=== PATIENT | female | born 1965 | race Caucasian/White ===

== ENCOUNTER 2023-06-27 14:38 | Observation (INO) | payer OTHER, SELFPAY ==
[2023-06-27] VITALS (37 sets, daily range): BP systolic 95–142; BP diastolic 53–96; PULSE 58–110; RESP 13–28; TEMP 36.1–36.3; O2SAT 92–97; BMI 48.1
--- NOTE | 2023-06-27 14:58 | ECG_ITS ---
The [facility] Test Date: 2023-06-27 Pat Name: PHYLLIS MIN Department: Room: - Gender: Female [employer] Member: : 1965 Requested By: [id number] Order Number: [id number] Reading MD: JESSICA LEON Measurements Intervals [place] Rate: 103 P: -[id number] OK: -[id number] QRS: 32 QRSD: 100 T: 10 QT: 320 QTc: 379 Interpretive Statements [id number] Atrial fibrillation with rapid ventricular response with aberrant conduction, or ventricular premature complexes [id number] Nonspecific Twave abnormality, probably digitalis effect 9140 abnormal rhythm ECG No previous ECG available for comparison Electronically Signed On 06-28-2023 7:05:03 EST by JESSICA LEON
--- NOTE | 2023-06-27 15:01 | ED.EYEPROB1 ---
HPI - Eye Problem General Chief complaint: Eye Problems Stated complaint: SUDDEN LOSS OF VISION Time Seen by Provider: 06/27/23 14:40 Source: patient Mode of arrival: walk-in Limitations: no limitations History of Present Illness HPI Narrative: Patient is a 57-year-old female who presents to the emergency department for the evaluation of visual change in the left eye for the last 3 days. She states she has developed cloudy vision in the left eye with davis visual loss in the 5 o'clock position and middle of her visual field. She has no visual changes to the right eye. She states she did have a headache preceding the symptoms but has no persistent headaches, fevers, vomiting. No peripheral paresthesias. She has had no previous issues or surgeries on the left eye. Related Data Allergies Allergy/AdvReac Type Severity Reaction Status Date / Time naproxen [From Aleve] Allergy Unknown Verified 06/27/23 14:47 Review of Systems ROS Constitutional Denies: fever or chills Eyes Reports: change in vision, blurry vision and blind spots Ears, nose, mouth, and throat Denies: throat pain Cardiovascular Denies: chest pain Respiratory Denies: shortness of breath or cough Gastrointestinal Denies: nausea or vomiting Musculoskeletal Denies: back pain Integumentary/Breast Denies: rash Neurological Denies: headache Exam Narrative Exam Narrative: Gen.: Awake, alert, in no distress Head: Normocephalic, atraumatic ENT: Moist mucous membranes; left eye with dilated pupil, no evidence of retinal detachment in the posterior aspect of the eye, dilated blood vessel noted with normal extraocular muscle motion Respiratory: No respiratory distress Extremities: Moves extremities equally Psych: Normal mood and affect Neuro: No focal neuro deficit Skin: Warm, dry, intact Constitutional Vital Signs, click to edit/add: Last Vital Signs Temp 97.4 F L 06/27/23 14:47 Pulse 69 06/27/23 14:47 Resp 16 06/27/23 14:47 BP 142/87 H 06/27/23 14:47 Pulse Ox 97 06/27/23 14:47 O2 Del Method Room Air 06/27/23 14:47 Course Vital Signs Vital signs: Vital Signs Temperature 97.4 F L 06/27/23 14:47 Pulse Rate 69 06/27/23 14:47 Respiratory Rate 16 06/27/23 14:47 Blood Pressure 142/87 H 06/27/23 14:47 Pulse Oximetry 97 06/27/23 14:47 Oxygen Delivery Method Room Air 06/27/23 14:47 Temperature 97.4 F L 06/27/23 14:47 Pulse Rate 69 06/27/23 14:47 Respiratory Rate 16 06/27/23 14:47 Blood Pressure 142/87 H 06/27/23 14:47 Pulse Oximetry 97 06/27/23 14:47 Oxygen Delivery Method Room Air 06/27/23 14:47 MDM - Eye Problem MDM Narrative Medical decision making narrative: On arrival to the emergency department, the patient was sent for stroke protocol CT of the brain without contrast as well as a CT angio head and neck. These results were reviewed by the radiologist showing no evidence of acute process. Lab studies and EKG were obtained, patient was noted to be in rapid new onset A-fib. She is not anticoagulated. Heart rate remained controlled as the patient rested in the ER, she did not require Cardizem for heart rate control. Her labs show leukocytosis, critically elevated platelet count, elevated TSH and mild hyperglycemia. CRP and sed rates are significantly elevated, concern for temporal arteritis in the ER. She was given 250 mg IV Solu-Medrol. I discussed the patient's presentation and clinical findings with Dr. Mcclain ([id number]) for [facility] stroke intervention, no additional stroke intervention at this time recommended. Tertiary care transfer was discussed and Dr. Mcclain is in agreement the patient should be admitted to neurology to rule out temporal arteritis. Discussed the patient with general neurology, Dr. Grossman ([id number]) who is also in agreement with tertiary care transfer and the patient will be excepted to general neurology service at [facility]. Due to challenges with bed availability, it was recommended that the patient be admitted to this facility overnight for teleneurology management, as well as Solu-Medrol 500 mg twice daily until the patient can be transferred to [facility]. Patient was given Rocephin for coverage of the leukocytosis and acute inflammatory response. Patient admitted to this facility, ICU until there is a bed available at [facility] to accept the patient for transfer. Stable at this time. Critical care time 35 minutes. Medical Records Attestation: I reviewed the patient's medical records. Lab Data Attestation: I reviewed the patient's lab results. Labs: Lab Results 06/27/23 Range/Units 15:09 WBC 26.1 H (4.0-11.0) 10^3/uL RBC 4.74 (4.20-5.40) 10^6/uL Hgb 11.5 L (12.0-16.0) g/dL Hct 37.2 (36.0-48.0) % MCV 78.5 L (81.0-99.0) fL MCH 24.3 L (26.7-34.0) pg MCHC 30.9 (29.9-35.2) g/dL RDW 20.2 H (11.0-15.0) % Plt Count 1031 H* (150-450) 10^3/uL MPV 9.6 (9.5-13.5) fL Seg Neuts % (Manual) 65.0 Lymphocytes % (Manual) 26.0 (20.5-60.0) % Monocytes % (Manual) 7.0 (1.7-12.0) % Eosinophils % (Manual) 0.0 L (0.9-7.0) % Basophils % (Manual) 1.0 (0.2-2.0) % Metamyelocytes % 1.0 Neutrophils # (Manual) 16.96 H (1.4-6.5) 10^3/uL Lymphocytes # (Manual) 6.78 H (1.20-3.80) 10^3/uL Monocytes # (Manual) 1.82 H (0.30-0.80) 10^3/uL Eosinophils # (Manual) 0.00 (0.00-0.70) 10^3/uL Basophils # (Manual) 0.26 H (0.00-0.10) 10^3/uL Metamyelocytes # 0.26 Hypersegmented Neuts 1+ Anisocytosis 2+ ESR >130 H (<=30) mm/hr Sodium 136 (136-145) mmol/L Potassium 4.1 (3.5-5.1) mmol/L Chloride 103 (98-107) mmol/L Carbon Dioxide 25.9 (21.0-32.0) mmol/L Anion Gap 11.2 BUN 16.0 (7.0-18.0) mg/dL Creatinine 1.07 H (0.55-1.02) mg/dL Est GFR ( Amer) >60 (>=60) Est GFR (Non-Af Amer) 53 L (>=60) BUN/Creatinine Ratio 15.0 Glucose 256 H (74-106) mg/dL Calcium 9.0 (8.5-10.1) mg/dL Total Bilirubin 0.3 (0.2-1.0) mg/dL AST 16 (15-37) U/L ALT 23 (14-59) U/L Alkaline Phosphatase 123 H (46-116) U/L C-Reactive Protein 6.31 H (<=0.30) mg/dL Total Protein 7.4 (6.4-8.2) g/dL Albumin 2.7 L (3.4-5.0) g/dL Globulin 4.7 g/dL Albumin/Globulin Ratio 0.6 TSH 28.370 H (0.358-3.740) uIU/mL Imaging Data CT scan - head: Attestation: I have reviewed the pertinent imaging results. Radiologist's impression: Procedure: CT stroke head/brain wo con EXAMINATION: CT stroke head/brain wo con TECHNIQUE: Axial CT images were obtained through the brain. Sagittal and coronal reformatted images were also obtained. Dose reduction techniques were achieved by using automated exposure control and/or adjustment of mA and/or kV according to patient size and/or use of iterative reconstruction technique. HISTORY: Left eye visual loss COMPARISON: FINDINGS: Intracranial Bleed: No evidence for acute intracranial bleed. Intracranial Mass: No evidence for mass lesion. No mass effect or midline shift. Extra-axial spaces: The ventricular system is normal caliber. White/Davis Matter: No acute cortical infarct. No significant white matter abnormality. Skull/Scalp: No evidence for skull fracture or lesion. Orbits and sinuses: The orbits appear unremarkable. The visualized paranasal sinuses are clear. IMPRESSION: No acute intracranial pathology. Electronically authenticated by: FAUSTINO ROBINS Date: 06/27/2023 15:44 CT angio head/neck: Attestation: I have reviewed the pertinent imaging results. Radiologist's impression: Procedure: CT angio head CTA HEAD/NECK. HISTORY: Visual loss COMPARISON: None. TECHNIQUE: CT angiogram of the head and neck obtained after administration of 75 mL of nonionic intravenous contrast material, Isovue-300. Multiplanar and volume rendered 3-D reformats were created. NASCET criteria was used for evaluation of luminal stenosis. 3-D vascular images were constructed on a separate workstation. FINDINGS: THORACIC AORTA: Normal. There is a normal anatomy at the origin of the great vessels. RIGHT COMMON CAROTID ARTERY: No significant stenosis. RIGHT EXTERNAL CAROTID ARTERY: No significant stenosis. RIGHT INTERNAL CAROTID ARTERY: No significant stenosis. LEFT COMMON CAROTID ARTERY: No significant stenosis. LEFT EXTERNAL CAROTID ARTERY: No significant stenosis. LEFT INTERNAL CAROTID ARTERY: No significant stenosis. RIGHT VERTEBRAL ARTERY: No significant stenosis. LEFT VERTEBRAL ARTERY: No significant stenosis. [place]: The bilateral intracranial internal carotid arteries, anterior cerebral arteries, middle cerebral arteries and anterior and posterior communicating arteries are normal. POSTERIOR INTRACRANIAL CIRCULATION: The basilar artery and posterior cerebral arteries are patent, without stenosis or occlusion. DURAL SINUSES: Patent. No intracranial aneurysm measuring least 2 mm identified. No intracranial AVM. LUNG APICES: The lung apices are clear. SOFT TISSUES: The prevertebral soft tissues are normal. No soft tissue inflammation. OSSEOUS STRUCTURES: No acute osseous abnormality throughout the imaged axial skeleton and skull base. IMPRESSION: No high-grade or hemodynamically flow-limiting stenosis of the major arteries of the head and neck. Electronically authenticated by: SHARRI ZACARIAS Date: 06/27/2023 16:12 ECG Data Attestation: I personally reviewed and interpreted this ECG as follows: (A-fib with RVR at a rate of 103, no acute ST elevation, no ectopy. EKG reviewed by attending physician) ECG interpretation date: 06/27/23 ECG interpretation time: 15:23 Critical Care Time Critical Care Time Total Critical Care Time: 35 Discharge Plan Discharge Chief Complaint: Eye Problems Clinical Impression: Elevated platelet count, Leukocytosis, New onset a-fib, Acute loss of vision Patient Disposition: Admitted as Observation Time of Disposition Decision: 16:51 Condition: Good
[2023-06-27 15:17] LABS: Hematocrit 37.2 % (36.0-48.0); Hemoglobin 11.5 g/dL (12.0-16.0); Mean Corpuscular HGB Conc 30.9 g/dL (29.9-35.2); Mean Corpuscular Hemoglobin 24.3 pg (26.7-34.0); Mean Corpuscular Volume 78.5 fL (81.0-99.0); Mean Platelet Volume 9.6 fL (9.5-13.5); Red Blood Count 4.74 10^6/uL (4.20-5.40); Red Cell Distribution Width 20.2 % (11.0-15.0); White Blood Count 26.1 10^3/uL (4.0-11.0)
--- NOTE | 2023-06-27 15:22 | PC.NURSE ---
Pt c/o cloudy vision L eye in center and off to L lower vision field. this started 2 days ago proceeded by a headache.
[2023-06-27 15:24] LABS: Platelet Count 1031 10^3/uL (150-450)
[2023-06-27 15:30] LABS: Erythrocyte Sedimentation Rate >130 mm/hr (<=30)
--- NOTE | 2023-06-27 15:30 | CT_ITS ---
The [address] [address] Patient Name: PHYLLIS MIN MRN: [id number] date: 1965 Sex: F Assigned Patient Location: ER Current Patient Location: ER Accession/Order Number: [id number] Exam Date: 06/27/2023 15:19 Report Date: 06/27/2023 15:44 At the request of: SANDEEP CERVANTES Procedure: CT stroke head/brain wo con EXAMINATION: CT stroke head/brain wo con TECHNIQUE: Axial CT images were obtained through the brain. Sagittal and coronal reformatted images were also obtained. Dose reduction techniques were achieved by using automated exposure control and/or adjustment of mA and/or kV according to patient size and/or use of iterative reconstruction technique. HISTORY: Left eye visual loss COMPARISON: FINDINGS: Intracranial Bleed: No evidence for acute intracranial bleed. Intracranial Mass: No evidence for mass lesion. No mass effect or midline shift. Extra-axial spaces: The ventricular system is normal caliber. White/Davis Matter: No acute cortical infarct. No significant white matter abnormality. Skull/Scalp: No evidence for skull fracture or lesion. Orbits and sinuses: The orbits appear unremarkable. The visualized paranasal sinuses are clear. CT/CT stroke head/brain wo con IMPRESSION: No acute intracranial pathology. Electronically authenticated by: FAUSTINO ROBINS Date: 06/27/2023 15:44
--- NOTE | 2023-06-27 15:30 | CT_ITS ---
[address] [address] Patient Name: PHYLLIS MIN MRN: [id number] date: 1965 Sex: F Assigned Patient Location: ER Current Patient Location: ER Accession/Order Number: [id number] Exam Date: 06/27/2023 15:19 Report Date: 06/27/2023 16:12 At the request of: SANDEEP CERVANTES Procedure: CT angio head CTA HEAD/NECK. HISTORY: Visual loss COMPARISON: None. TECHNIQUE: CT angiogram of the head and neck obtained after administration of 75 mL of nonionic intravenous contrast material, Isovue-300. Multiplanar and volume rendered 3-D reformats were created. NASCET criteria was used for evaluation of luminal stenosis. 3-D vascular images were constructed on a separate workstation. FINDINGS: THORACIC AORTA: Normal. There is a normal anatomy at the origin of the great vessels. RIGHT COMMON CAROTID ARTERY: No significant stenosis. RIGHT EXTERNAL CAROTID ARTERY: No significant stenosis. RIGHT INTERNAL CAROTID ARTERY: No significant stenosis. LEFT COMMON CAROTID ARTERY: No significant stenosis. LEFT EXTERNAL CAROTID ARTERY: No significant stenosis. LEFT INTERNAL CAROTID ARTERY: No significant stenosis. RIGHT VERTEBRAL ARTERY: No significant stenosis. LEFT VERTEBRAL ARTERY: No significant stenosis. [place]: The bilateral intracranial internal carotid arteries, anterior cerebral arteries, middle cerebral arteries and anterior and posterior communicating arteries are normal. POSTERIOR INTRACRANIAL CIRCULATION: The basilar artery and posterior cerebral arteries are patent, without stenosis or occlusion. DURAL SINUSES: Patent. No intracranial aneurysm measuring least 2 mm identified. No intracranial AVM. LUNG APICES: The lung apices are clear. SOFT TISSUES: The prevertebral soft tissues are normal. No soft tissue inflammation. OSSEOUS STRUCTURES: No acute osseous abnormality throughout the imaged axial skeleton and skull base. CT/CT angio head IMPRESSION: No high-grade or hemodynamically flow-limiting stenosis of the major arteries of the head and neck. Electronically authenticated by: SHARRI ZACARIAS Date: 06/27/2023 16:12
--- NOTE | 2023-06-27 15:30 | CT_ITS ---
[address] [address] Patient Name: PHYLLIS MIN MRN: [id number] date: 1965 Sex: F Assigned Patient Location: ER Current Patient Location: ER Accession/Order Number: [id number] Exam Date: 06/27/2023 15:19 Report Date: 06/27/2023 16:12 At the request of: SANDEEP CERVANTES Procedure: CT angio neck CTA HEAD/NECK. HISTORY: Visual loss COMPARISON: None. TECHNIQUE: CT angiogram of the head and neck obtained after administration of 75 mL of nonionic intravenous contrast material, Isovue-300. Multiplanar and volume rendered 3-D reformats were created. NASCET criteria was used for evaluation of luminal stenosis. 3-D vascular images were constructed on a separate workstation. FINDINGS: THORACIC AORTA: Normal. There is a normal anatomy at the origin of the great vessels. RIGHT COMMON CAROTID ARTERY: No significant stenosis. RIGHT EXTERNAL CAROTID ARTERY: No significant stenosis. RIGHT INTERNAL CAROTID ARTERY: No significant stenosis. LEFT COMMON CAROTID ARTERY: No significant stenosis. LEFT EXTERNAL CAROTID ARTERY: No significant stenosis. LEFT INTERNAL CAROTID ARTERY: No significant stenosis. RIGHT VERTEBRAL ARTERY: No significant stenosis. LEFT VERTEBRAL ARTERY: No significant stenosis. [place]: The bilateral intracranial internal carotid arteries, anterior cerebral arteries, middle cerebral arteries and anterior and posterior communicating arteries are normal. POSTERIOR INTRACRANIAL CIRCULATION: The basilar artery and posterior cerebral arteries are patent, without stenosis or occlusion. DURAL SINUSES: Patent. No intracranial aneurysm measuring least 2 mm identified. No intracranial AVM. LUNG APICES: The lung apices are clear. SOFT TISSUES: The prevertebral soft tissues are normal. No soft tissue inflammation. OSSEOUS STRUCTURES: No acute osseous abnormality throughout the imaged axial skeleton and skull base. CT/CT angio neck IMPRESSION: No high-grade or hemodynamically flow-limiting stenosis of the major arteries of the head and neck. Electronically authenticated by: SHARRI ZACARIAS Date: 06/27/2023 16:12
[2023-06-27 15:40] LABS: Basophils Abs Manual 0.26 10^3/uL (0.00-0.10); Lymphocytes Absolute Manual 6.78 10^3/uL (1.20-3.80); Metamyelocytes Absolute Manual 0.26; Monocytes Absolute Manual 1.82 10^3/uL (0.30-0.80); Segmented Neut Absolute Manual 16.96 10^3/uL (1.4-6.5)
[2023-06-27 15:43] LABS: Alanine Aminotransferase 23 U/L (14-59); Albumin Globulin Ratio 0.6; Albumin Level 2.7 g/dL (3.4-5.0); Alkaline Phosphatase 123 U/L (46-116); Anion Gap 11.2; Aspartate Amino Transferase 16 U/L (15-37); Bilirubin Total 0.3 mg/dL (0.2-1.0); Carbon Dioxide 25.9 mmol/L (21.0-32.0); Chloride 103 mmol/L (98-107); Estimated GFR (African America >60 (>=60); Estimated GFR (Non-African Ame 53 (>=60); Globulin 4.7 g/dL; Glucose 256 mg/dL (74-106); Hypersegmented Neutrophils 1+; Potassium 4.1 mmol/L (3.5-5.1); Sodium 136 mmol/L (136-145); Total Protein 7.4 g/dL (6.4-8.2)
[2023-06-27 15:45] LABS: Anisocytosis 2+; C Reactive Protein 6.31 mg/dL (<=0.30)
[2023-06-27] MEDS: METHYLPREDNISOLONE SOD SUCC/PF 250 MG in 0.9 % SODIUM CHLORIDE 50 ML 108 MG INJ (16:16)
[2023-06-27 16:51] LABS: Free T3 0.59 pg/mL (2.18-3.98)
[2023-06-27] MEDS: CEFTRIAXONE 1,000 MG in 0.9 % SODIUM CHLORIDE 50 ML 100 MG IV (16:57)
[2023-06-27] MEDS: ENOXAPARIN SODIUM 100 MG/ML SYRINGE SUBQ (17:23)
[2023-06-27] MEDS: LAMOTRIGINE 100 MG TABLET 200 MG PO (21:52)
[2023-06-27] MEDS: OMEPRAZOLE 20 MG CAPSULE.DR PO (21:52)
[2023-06-27] MEDS: BUSPIRONE HCL 15 MG TABLET 30 MG PO (21:52)
[2023-06-27] MEDS: TRAZODONE HCL 50 MG TABLET 100 MG PO (21:52)
[2023-06-28] VITALS (43 sets, daily range): BP systolic 112–141; BP diastolic 52–81; PULSE 47–70; RESP 14–26; TEMP 36.4; O2SAT 94–96
[2023-06-28 04:36] LABS: Basophils Absolute Auto 0.1 10^3/uL (0.0-0.1); Basophils Percent Auto 0.4 % (0.2-2.0); Hematocrit 35.7 % (36.0-48.0); Hemoglobin 10.6 g/dL (12.0-16.0); Immature Granulocytes Abs Auto 0.52 10^3/uL (0.00-0.03); Immature Granulocytes Pct Auto 2.2 % (0.0-0.5); Lymphocytes Absolute Auto 4.8 10^3/uL (1.2-3.8); Lymphocytes Percent Auto 20.6 % (20.5-60.0); Mean Corpuscular HGB Conc 29.7 g/dL (29.9-35.2); Mean Corpuscular Hemoglobin 24.1 pg (26.7-34.0); Mean Corpuscular Volume 81.3 fL (81.0-99.0); Monocytes Percent Auto 4.4 % (1.7-12.0); Neutrophils Absolute Auto 16.8 10^3/uL (1.4-6.5); Neutrophils Percent Auto 72.4 % (43.0-75.0); Platelet Count 995 10^3/uL (150-450); Red Blood Count 4.39 10^6/uL (4.20-5.40); Red Cell Distribution Width 20.5 % (11.0-15.0); White Blood Count 23.2 10^3/uL (4.0-11.0)
[2023-06-28 05:14] LABS: Anion Gap 11.5; BUN Creatinine Ratio 17.1; Carbon Dioxide 26.9 mmol/L (21.0-32.0); Chloride 104 mmol/L (98-107); Estimated GFR (African America >60 (>=60); Estimated GFR (Non-African Ame 54 (>=60); Glucose 313 mg/dL (74-106); Potassium 4.4 mmol/L (3.5-5.1); Sodium 138 mmol/L (136-145)
[2023-06-28] MEDS: LEVOTHYROXINE SODIUM 100 MCG TABLET 200 MCG PO (05:35)
[2023-06-28] MEDS: METHYLPREDNISOLONE SOD SUCC PF 125 MG/2 ML VIAL 250 MG IVP ×2 (05:36→16:34)
--- NOTE | 2023-06-28 09:22 | CM.NOTE ---
Pt being transferred to higher level of care.
--- NOTE | 2023-06-28 09:43 | CM.NOTE ---
Rounding with Dr. Luna. Plan for patient to be transferred to [facility] in [place], awaiting bed, patient in agreement with this plan.
[2023-06-28] MEDS: SERTRALINE HCL 100 MG TABLET 200 MG PO (10:18)
[2023-06-28] MEDS: BUSPIRONE HCL 15 MG TABLET 30 MG PO ×2 (10:19→21:14)
[2023-06-28] MEDS: ENOXAPARIN SODIUM 40 MG/0.4 ML SYRINGE SUBQ (10:19)
--- NOTE | 2023-06-28 11:36 | PM.HP ---
H&P: HPI History of Present Illness Chief complaint: Vision change, headache Narrative: 57 y/o female to ER with vision change and HWANG. C/o sudden loss of vision in left eye 3 days ago. Initially cloudy vision then lost vision in center and about 5 O'clock position. No problems with right eye. C/o increased HWANG on side of head and back of head for several days. No weakness but c/o numbness to fingers on left hand. To ER and CT head and CTA head/neck negative for acute change. ESR >130. History of ITP and platelets over 1000. ER discussed with tele-stroke and wanted transferred to [facility] for work up and assess for CVA vs temporal arteritis. Recommended high dose solu-medrol and given 250 mg IV. No bed available and admitted. Continues to have vision changes and numbness. Continued HWANG. Review of Systems ROS Constitutional Denies: fever, chills or fatigue Eyes Reports: change in vision, blurry vision and blind spots Cardiovascular Denies: chest pain, palpitations, edema or lightheadedness Respiratory Denies: shortness of breath, cough or wheezing Gastrointestinal Denies: abdominal pain, nausea, vomiting or diarrhea Genitourinary Denies: painful urination [facility] Medical History (Updated 06/28/23 @ 11:37 by Jeff Luna MD) Anxiety ?F41.9 - Anxiety disorder, unspecified (ICD-10) Elevated platelet count ?R79.89 - Other specified abnormal findings of blood chemistry (ICD-10) Hypothyroid ?E03.9 - Hypothyroidism, unspecified (ICD-10) Low platelet count ?D69.6 - Thrombocytopenia, unspecified (ICD-10) Social History (Updated 06/28/23 @ 10:54 by Tammy Rebollar) Smoking status: Current every day smoker Previous occupational history: disabled Known occupational exposures/hazards: No Meds Home Medications and Allergies Home Medications Medication Instructions Recorded Confirmed Type albuterol sulfate 90 mcg/actuation 1 puff inhalation Q4H PRN 06/27/23 06/27/23 History aerosol inhaler shortness of breath or wheezing buspirone 30 mg tablet 30 mg PO BID 06/27/23 06/27/23 History fluticasone propionate 50 2 spray intranasal Q12H PRN 06/27/23 06/27/23 History mcg/actuation nasal allergy symptoms spray,suspension lamotrigine 200 mg tablet 200 mg PO .HS 06/27/23 06/27/23 History levothyroxine 200 mcg tablet 200 mcg PO DAILY 06/27/23 06/27/23 History omeprazole 20 mg capsule,delayed 20 mg PO .HS 06/27/23 06/27/23 History release prednisone 20 mg tablet 20 mg PO DAILY 06/27/23 06/28/23 History sertraline 100 mg tablet 200 mg PO DAILY 06/27/23 06/27/23 History trazodone 100 mg tablet 200 mg PO .hs 06/27/23 06/28/23 History umeclidinium 62.5 mcg-vilanterol 1 inh inhalation DAILY 06/28/23 06/28/23 History 25 mcg/actuation powdr for inhalation (Anoro Ellipta) Allergies Allergy/AdvReac Type Severity Reaction Status Date / Time naproxen [From Aleve] Allergy Unknown Verified 06/27/23 14:47 Exam Constitutional Vital Signs, click to edit/add: Last Vital Signs Temp 97.5 F L 06/28/23 01:07 Pulse 64 06/28/23 04:10 Resp 16 06/28/23 04:10 BP 115/66 06/28/23 01:07 Pulse Ox 96 06/28/23 01:07 O2 Del Method Room Air 06/28/23 01:07 Documenting provider has reviewed patient's vital signs: yes Common normals: no apparent distress, oriented x3 and alert HENMT Common normals: normocephalic Eye Common normals: PERRL and EOMs intact bilaterally Respiratory Common normals: normal respiratory effort and clear to auscultation bilaterally Cardio Common normals: regular rate, regular rhythm, no gallops, no murmurs and no rub GI Common normals: Normal to inspection, nondistended, normoactive bowel sounds present and non-tender Extremity Common normals: no pedal edema Results Labs Labs: Short CBC 06/27/23 06/28/23 Range/Units 15:09 04:25 WBC 26.1 H 23.2 H (4.0-11.0) 10^3/uL Hgb 11.5 L 10.6 L (12.0-16.0) g/dL Hct 37.2 35.7 L (36.0-48.0) % Plt Count 1031 H* 995 H (150-450) 10^3/uL BMP 06/27/23 06/28/23 15:09 04:25 Sodium 136 138 Potassium 4.1 4.4 Chloride 103 104 Carbon Dioxide 25.9 26.9 BUN 16.0 18.0 Creatinine 1.07 H 1.05 H Glucose 256 H 313 H Calcium 9.0 9.0 Liver Function 06/27/23 Range/Units 15:09 Total Bilirubin 0.3 (0.2-1.0) mg/dL AST 16 (15-37) U/L ALT 23 (14-59) U/L Alkaline Phosphatase 123 H (46-116) U/L Albumin 2.7 L (3.4-5.0) g/dL Imaging CT scan - head: Attestation: I have reviewed the pertinent imaging results. Assessment and Plan Assessment and Plan (1) Acute loss of vision: (2) Chronic ITP (idiopathic thrombocytopenic purpura): (3) New onset a-fib: (4) Leukocytosis: (5) Morbid obesity: Plan Presented with vision loss and HWANG. Tele-stroke recommended transfer to [facility] but no bed available. Labs suggestive of temporal arteritis and on solu-medrol. Monitor and will transfer once bed available.
[2023-06-28] MEDS: NICOTINE 21 MG PATCH.TD24 TD (12:11)
--- NOTE | 2023-06-28 14:34 | PC.NURSE ---
Patient states her left eye is hazy, Cloudy
[2023-06-28] MEDS: IPRATROPIUM/ALBUTEROL SULFATE 3 ML AMPUL.NEB IH ×2 (16:41→20:23)
[2023-06-28] MEDS: TRAZODONE HCL 50 MG TABLET 200 MG PO (21:14)
[2023-06-28] MEDS: OMEPRAZOLE 20 MG CAPSULE.DR PO (21:14)
[2023-06-28] MEDS: LAMOTRIGINE 100 MG TABLET 200 MG PO (21:14)
[2023-06-29] VITALS (69 sets, daily range): BP systolic 107–155; BP diastolic 52–84; PULSE 54–99; RESP 14–27; TEMP 36.6; O2SAT 92–99
[2023-06-29] MEDS: IPRATROPIUM/ALBUTEROL SULFATE 3 ML AMPUL.NEB IH ×4 (04:34→20:01)
[2023-06-29 05:32] LABS: Basophils Absolute Auto 0.1 10^3/uL (0.0-0.1); Basophils Percent Auto 0.3 % (0.2-2.0); Hematocrit 33.6 % (36.0-48.0); Immature Granulocytes Abs Auto 0.95 10^3/uL (0.00-0.03); Lymphocytes Absolute Auto 5.1 10^3/uL (1.2-3.8); Lymphocytes Percent Auto 16.2 % (20.5-60.0); Mean Corpuscular HGB Conc 29.8 g/dL (29.9-35.2); Mean Corpuscular Hemoglobin 24.2 pg (26.7-34.0); Mean Corpuscular Volume 81.2 fL (81.0-99.0); Monocytes Percent Auto 6.3 % (1.7-12.0); Neutrophils Absolute Auto 23.5 10^3/uL (1.4-6.5); Neutrophils Percent Auto 74.2 % (43.0-75.0); Red Blood Count 4.14 10^6/uL (4.20-5.40); Red Cell Distribution Width 20.6 % (11.0-15.0)
[2023-06-29] MEDS: LEVOTHYROXINE SODIUM 100 MCG TABLET 200 MCG PO (05:41)
[2023-06-29] MEDS: METHYLPREDNISOLONE SOD SUCC PF 125 MG/2 ML VIAL 250 MG IVP ×2 (05:41→16:59)
[2023-06-29 05:54] LABS: Anion Gap 15.1; BUN Creatinine Ratio 18.1; Calcium 9.3 mg/dL (8.5-10.1); Carbon Dioxide 22.3 mmol/L (21.0-32.0); Chloride 101 mmol/L (98-107); Estimated GFR (African America 59 (>=60); Estimated GFR (Non-African Ame 49 (>=60); Potassium 4.4 mmol/L (3.5-5.1); Sodium 134 mmol/L (136-145)
[2023-06-29 05:57] LABS: Platelet Count 1027 10^3/uL (150-450); White Blood Count 31.7 10^3/uL (4.0-11.0)
[2023-06-29 05:58] LABS: Glucose 534 mg/dL (74-106)
--- NOTE | 2023-06-29 06:00 | ECG_ITS ---
The [facility] Test Date: 2023-06-29 Pat Name: PHYLLIS MIN Department: Room: [facility] Gender: Female Administration Dean: : 1965 Requested By: Order Number: [id number] Reading MD: JESSICA LEON Measurements Intervals [place] Rate: 65 P: 41 [place]: 154 QRS: 39 QRSD: 112 T: 47 QT: 392 QTc: 404 Interpretive Statements 1100 Sinus rhythm 1102 Sinus arrhythmia 9150 abnormal ECG Electronically Signed On 06-30-2023 19:56:38 EST by JESSICA LEON
[2023-06-29 08:57] LABS: Glucometer 470 mg/dL (74-106)
[2023-06-29] MEDS: BUSPIRONE HCL 15 MG TABLET 30 MG PO ×2 (09:00→21:50)
[2023-06-29] MEDS: ENOXAPARIN SODIUM 40 MG/0.4 ML SYRINGE SUBQ (09:01)
[2023-06-29] MEDS: INSULIN ASPART 300 UNIT/3 ML PEN SUBQ ×3 (09:01→22:03)
[2023-06-29] MEDS: INSULIN DETEMIR 300 UNIT/3 ML INSULN.PEN 20 UNIT SUBQ (09:01)
[2023-06-29] MEDS: SERTRALINE HCL 100 MG TABLET 200 MG PO (09:01)
[2023-06-29 11:45] LABS: Glucometer 509 mg/dL (74-106)
[2023-06-29 11:47] LABS: Glucometer 528 mg/dL (74-106)
[2023-06-29] MEDS: NICOTINE 21 MG PATCH.TD24 TD (12:34)
[2023-06-29] MEDS: INSULIN ASPART 300 UNIT/3 ML PEN 15 UNIT SUBQ (12:47)
[2023-06-29 13:38] LABS: Glucometer 500 mg/dL (74-106)
[2023-06-29 13:57] LABS: Lactate Dehydrogenase 183 U/L (81-234)
[2023-06-29] MEDS: INSULIN DETEMIR 300 UNIT/3 ML INSULN.PEN 30 UNIT SUBQ (14:04)
[2023-06-29] MEDS: INSULIN REGULAR IN 0.9 % NACL 100 UNIT/100 ML PLAST..BAG 10 UNIT IV ×2 (14:09→14:10)
[2023-06-29 15:16] LABS: Glucometer 459 mg/dL (74-106)
--- NOTE | 2023-06-29 20:05 | PC.NURSE ---
Patient notes left eye vision continues to have a small spot in the center of her vision that she does not able to see in that area. Patient feels this spot has decreased in size since the time of her admission. Also noted is an area located at the 5 o'clock position that patient notes as blurry and unclear and patient also notes that she feels this area has shown slight improvement since admission. Patient denies any new or changed symptoms with her vision since last assessment at this time. Denies pain or burning of eyes, dryness or change in tearing.
[2023-06-29] MEDS: OMEPRAZOLE 20 MG CAPSULE.DR PO (21:50)
[2023-06-29] MEDS: LAMOTRIGINE 100 MG TABLET 200 MG PO (21:50)
[2023-06-29] MEDS: ENOXAPARIN SODIUM 100 MG/ML SYRINGE SUBQ (21:50)
[2023-06-29] MEDS: TRAZODONE HCL 50 MG TABLET 200 MG PO (21:56)
[2023-06-29 22:03] LABS: Glucometer 439 mg/dL (74-106)
--- NOTE | 2023-06-29 23:43 | P.IMPN_ITS ---
Progress Note: A&P Assessment and Plan (1) Acute loss of vision: Assessment and Plan: W/u for stroke - negative. Being treated for Temporal arteritis. On High dose of systemic steroids. Neurology on board and was accepted for trasnfer to [facility] Slowly improving. HWANG is now gone. Qualifiers: Laterality: left Qualified Code(s): H53.132 - Sudden visual loss, left eye (2) Chronic ITP (idiopathic thrombocytopenic purpura): Assessment and Plan: Recent flare up as outpatient for which she was on steroids just prior to her admission Her baseline Plt is 100-150 (3) New onset a-fib: Assessment and Plan: New Onset Afib on presentation, reverteed to NSR. On Lovenox for AC. 2D ECHO ordered. (4) Leukocytosis: Assessment and Plan: Likely due to systemic steroids. Monitor. Qualifiers: Leukocytosis type: leukemoid reaction Qualified Code(s): D72.823 - Leukemoid reaction (5) Morbid obesity: Assessment and Plan: She would benefit from weight loss. Defer to PCP (6) Hyperglycemia, drug-induced: Assessment and Plan: Pt reports personal hx of prediabetes. Her blood glucose have been persistently elevated due to systemic steroids. She received multiple boluses of SQ insulin throughout the day along with addition of Levemir but remained hyperglycemic with FSBS above 500. She was then started on Insulin drip that was turned off after her dinner. She will need Levemir 50 units daily, along with SSI. (7) Temporal arteritis: Assessment and Plan: HWANG alongwith blurred vision, elevated ESR, CRP. Being treated with systemic steroids. Need confirmatory testing which likely be performed at [facility] (8) Thrombocytosis: Assessment and Plan: Likely reactive. This was discussed with Oncology. Will need oncology consult/evaluation (9) Hypothyroid: Assessment and Plan: On levothyroxine. C/w same Qualifiers: Hypothyroidism type: unspecified Qualified Code(s): E03.9 - Hypothyroidism, unspecified (10) COPD (chronic obstructive pulmonary disease): Assessment and Plan: Stable, c/w same. No wheezing noted. Qualifiers: COPD type: unspecified COPD Qualified Code(s): J44.9 - Chronic obstructive pulmonary disease, unspecified Internal Medicine - PN: Subj Subjective Interval history: Seen and examined. Reports feeling tired and exhausted. She has persistent blurred vision from her left eye but it has improved since admission. Denies HWANG. Poorly controlled blood glucose likely due to systemic steroids Exam Constitutional Vital Signs, click to edit/add: Last Vital Signs Temp 97.9 F 06/29/23 00:40 Pulse 68 06/29/23 22:00 Resp 20 06/29/23 20:20 BP 148/84 H 06/29/23 19:32 Pulse Ox 95 06/29/23 20:20 O2 Del Method Room Air 06/29/23 20:20 Common normals: no apparent distress and oriented x3 General appearance: cooperative, comfortable and lethargic Nutritional appearance: obese HENMT Common normals: normocephalic and head/scalp atraumatic Eye Common normals: PERRL, EOMs intact bilaterally and conjunctivae normal Other: On fundoscopy - retina appeared pale, no bleeding noted. optic disc also appeared pale Respiratory Common normals: normal respiratory effort, no use of accessory muscles and clear to auscultation bilaterally Cardio Common normals: regular rate, regular rhythm, S1 normal heart sound and S2 normal heart sound Neuro Common normals: oriented x3, moves all extremities and no focal motor deficits Internal Medicine - PN: Obj Da Labs Labs: Laboratory Results - last 24 hr 06/29/23 06/29/23 06/29/23 05:13 08:56 11:44 WBC 31.7 H* RBC 4.14 L Hgb 10.0 L Hct 33.6 L MCV 81.2 MCH 24.2 L MCHC 29.8 L RDW 20.6 H Plt Count 1027 H* MPV 10.0 Neut % (Auto) 74.2 Lymph % (Auto) 16.2 L Mellette % (Auto) 6.3 Eos % (Auto) 0.0 L Baso % (Auto) 0.3 Neut # (Auto) 23.5 H Lymph # (Auto) 5.1 H Mellette # (Auto) 2.0 H Eos # (Auto) 0.0 Baso # (Auto) 0.1 Abs Immat Gran (auto) 0.95 H Imm/Tot Granulo (auto) 3.0 H Sodium 134 L Potassium 4.4 Chloride 101 Carbon Dioxide 22.3 Anion Gap 15.1 BUN 21.0 H Creatinine 1.16 H Est GFR ( Amer) 59 L Est GFR (Non-Af Amer) 49 L BUN/Creatinine Ratio 18.1 Glucose 534 H* Calcium 9.3 Lactate Dehydrogenase 183 TSH & Free T4 Interp 14.334 H POC Glucose 470 H 509 H* 06/29/23 06/29/23 06/29/23 11:47 13:36 15:06 WBC RBC Hgb Hct MCV MCH MCHC RDW Plt Count MPV Neut % (Auto) Lymph % (Auto) Mellette % (Auto) Eos % (Auto) Baso % (Auto) Neut # (Auto) Lymph # (Auto) Mellette # (Auto) Eos # (Auto) Baso # (Auto) Abs Immat Gran (auto) Imm/Tot Granulo (auto) Sodium Potassium Chloride Carbon Dioxide Anion Gap BUN Creatinine Est GFR ( Amer) Est GFR (Non-Af Amer) BUN/Creatinine Ratio Glucose Calcium Lactate Dehydrogenase TSH & Free T4 Interp POC Glucose 528 H* 500 H 459 H 06/29/23 22:02 WBC RBC Hgb Hct MCV MCH MCHC RDW Plt Count MPV Neut % (Auto) Lymph % (Auto) Mellette % (Auto) Eos % (Auto) Baso % (Auto) Neut # (Auto) Lymph # (Auto) Mellette # (Auto) Eos # (Auto) Baso # (Auto) Abs Immat Gran (auto) Imm/Tot Granulo (auto) Sodium Potassium Chloride Carbon Dioxide Anion Gap BUN Creatinine Est GFR ( Amer) Est GFR (Non-Af Amer) BUN/Creatinine Ratio Glucose Calcium Lactate Dehydrogenase TSH & Free T4 Interp POC Glucose 439 H
[2023-06-30 00:11] VITALS: PULSE 64
--- NOTE | 2023-06-30 00:41 | PC.NURSE ---
Patient left at 0035 via stretcher with EMS and her belongings.
== END 2023-06-30 03:45 | disposition short-term general hospital (02) ==
LOC: ER 17:30 → ICU 20:01
PROVIDERS: Family Medicine; Physician Assistant; Admitting Provider Internal Medicine; Emergency Provider Emergency Medicine Emergency Medical Services; Family Provider Internal Medicine Hematology & Oncology; PCP Family Medicine; Visit Provider Internal Medicine
DX: M31.6 Other giant cell arteritis (principal); D69.3 Immune thrombocytopenic purpura; I48.91 Unspecified atrial fibrillation; D72.829 Elevated white blood cell count, unspecified; E03.9 Hypothyroidism, unspecified; D75.839 Thrombocytosis, unspecified; R73.9 Hyperglycemia, unspecified; T38.0X5A Adverse effect of glucocorticoids and synthetic analogues, initial encounter; H54.62 Unqualified visual loss, left eye, normal vision right eye; E66.01 Morbid (severe) obesity due to excess calories; Z79.899 Other long term (current) drug therapy; Z79.890 Hormone replacement therapy; F17.210 Nicotine dependence, cigarettes, uncomplicated; F41.9 Anxiety disorder, unspecified; Z68.42 Body mass index [BMI] 45.0-49.9, adult
CPT/HCPCS: 36415; 70450; 70496; 70498; 80048; 80053; 82948; 83615; 83930; 84439; 84443; 84481; 85025; 85027; 85652; 86140; 93005; 94640; 96365; 96368; 96372; 96376; 99285; G0378; J2930; Q9967

== ENCOUNTER 2023-07-10 08:06 | Outpatient (OUT) | payer OTHER, SELFPAY ==
--- NOTE | 2023-07-10 08:27 | US_ITS ---
[facility] [id number] Patient Name: PHYLLIS MIN MRN: [id number] date: 1965 Sex: F Assigned Patient Location: US Current Patient Location: US Accession/Order Number: [id number] Exam Date: 07/10/2023 08:30 Report Date: 07/10/2023 10:04 At the request of: ISAIAH SARGENT Procedure: US venous doppler LE RT EXAMINATION: US venous doppler LE RT HISTORY: Pain Of Right Calf M79.661 COMPARISON: No relevant comparison available. FINDINGS: REGION: Right lower extremity THROMBI: None. COMPRESSIBILITY: Normal compressibility. FLOW: Normal waveform and antegrade flow between 5 and 20 cm/s. OTHER: None. US/US venous doppler LE RT IMPRESSION: 1. No deep vein thrombus within the right lower extremity. Electronically authenticated by: NAVYA BROWN Date: 07/10/2023 10:04
== END 2023-07-10 08:07 | disposition home or self-care (01) ==
LOC: US 08:08
PROVIDERS: Family Provider Internal Medicine Hematology & Oncology; PCP Family Medicine; Visit Provider Family Medicine
DX: M79.661 Pain in right lower leg (principal)
CPT/HCPCS: 93971

== ENCOUNTER 2023-07-17 14:23 | Outpatient (OUT) | payer OTHER, SELFPAY ==
[2023-07-17 15:30] LABS: C Reactive Protein 3.91 mg/dL (<=0.50)
[2023-07-17 15:39] LABS: Erythrocyte Sedimentation Rate 127 mm/hr (<=30)
[2023-07-18 06:09] LABS: Rheumatoid Factor (RF) <10.0 IU/mL (<14.0)
[2023-07-18 11:10] LABS: Rapid Plasma Reagin, Quant Non Reactive titer (NonRea<1:1)
[2023-07-18 12:09] LABS: ANA Direct Negative (Negative); Lyme Total Antibody CIA Negative (Negative)
[2023-07-18 15:09] LABS: Angiotensin-Converting Enzyme 68 U/L (14-82)
[2023-07-19 07:08] LABS: QuantiFERON-TB Gold Plus Negative (Negative)
== END 2023-07-17 14:24 | disposition home or self-care (01) ==
LOC: LAB 14:25
PROVIDERS: Family Provider Internal Medicine Hematology & Oncology; PCP Family Medicine
DX: H47.10 Unspecified papilledema (principal)
CPT/HCPCS: 36415; 82164; 85652; 86038; 86140; 86362; 86430; 86431; 86480; 86592; 86611; 86618; 99999

== ENCOUNTER 2023-07-23 14:30 | Emergency (ER) | payer OTHER, SELFPAY ==
[2023-07-23 14:33] VITALS: BP 133/74; PULSE 68; RESP 20; TEMP 36.9; O2SAT 97; BMI 47.6
--- NOTE | 2023-07-23 14:58 | ED.GENADUL1 ---
HPI - General Adult General Chief complaint: Eye Problems Stated complaint: SHORTNESS BREATH Time Seen by Provider: 07/23/23 14:42 Source: patient Mode of arrival: walk-in Limitations: no limitations History of Present Illness HPI narrative: Patient is a 57-year-old female with a history of diabetes who is referred to the emergency department for concern of temporal arteritis. Patient was seen in this emergency department 1 month ago, she was admitted to this facility and treated with a presumptive diagnosis of temporal arteritis and transferred to [facility]. She did not receive a temporal artery biopsy while she was hospitalized. She followed up with optometry at [facility] last week, she had repeat labs performed showing elevated platelets and sed rate, and her machine ii coremaker referred her to the emergency department to determine if she needed steroids or further workup. Patient states at this time she has had no new changes in her vision, no other focal medical complaints. She denies any headache or temporal pain at this time. Related Data Home Medications Medication Instructions Recorded Confirmed albuterol sulfate 90 mcg/actuation 1 puff inhalation Q4H PRN 06/27/23 06/27/23 aerosol inhaler shortness of breath or wheezing buspirone 30 mg tablet 30 mg PO BID 06/27/23 06/27/23 fluticasone propionate 50 2 spray intranasal Q12H PRN 06/27/23 06/27/23 mcg/actuation nasal allergy symptoms spray,suspension lamotrigine 200 mg tablet 200 mg PO .HS 06/27/23 06/27/23 levothyroxine 200 mcg tablet 200 mcg PO DAILY 06/27/23 06/27/23 omeprazole 20 mg capsule,delayed 20 mg PO .HS 06/27/23 06/27/23 release prednisone 20 mg tablet 20 mg PO DAILY 06/27/23 06/28/23 sertraline 100 mg tablet 200 mg PO DAILY 06/27/23 06/27/23 trazodone 100 mg tablet 200 mg PO .hs 06/27/23 06/28/23 umeclidinium 62.5 mcg-vilanterol 1 inh inhalation DAILY 06/28/23 06/28/23 25 mcg/actuation powdr for inhalation (Anoro Ellipta) Allergies Allergy/AdvReac Type Severity Reaction Status Date / Time naproxen [From Aleve] Allergy Unknown Verified 06/27/23 14:47 Review of Systems ROS Constitutional Denies: fever or chills Eyes Reports: change in vision Ears, nose, mouth, and throat Denies: throat pain Cardiovascular Denies: chest pain Respiratory Denies: cough Gastrointestinal Denies: nausea or vomiting Musculoskeletal Denies: back pain or neck pain Integumentary/Breast Denies: rash Neurological Denies: headache PFSH PFSH Medical History (Updated 07/23/23 @ 15:45 by CARRILLO Núñez) COPD (chronic obstructive pulmonary disease) ?J44.9 - Chronic obstructive pulmonary disease, unspecified (ICD-10) Low platelet count ?D69.6 - Thrombocytopenia, unspecified (ICD-10) Anxiety ?F41.9 - Anxiety disorder, unspecified (ICD-10) Hypothyroid ?E03.9 - Hypothyroidism, unspecified (ICD-10) Elevated platelet count ?R79.89 - Other specified abnormal findings of blood chemistry (ICD-10) Social History Smoking status: Heavy tobacco smoker Previous occupational history: disabled Known occupational exposures/hazards: No Exam Narrative Exam Narrative: Gen.: Awake, alert, in no distress Head: Normocephalic, atraumatic ENT: Moist mucous membranes, no tenderness over the left temporal artery Respiratory: No respiratory distress Extremities: Moves extremities equally Psych: Normal mood and affect Neuro: No focal neuro deficit Skin: Warm, dry, intact Constitutional Vital Signs, click to edit/add: Last Vital Signs Temp 98.5 F 07/23/23 14:33 Pulse 68 07/23/23 14:33 Resp 20 07/23/23 14:33 BP 133/74 07/23/23 14:33 Pulse Ox 97 07/23/23 14:33 O2 Del Method Room Air 07/23/23 14:33 Course Vital Signs Vital signs: Vital Signs Temperature 98.5 F 07/23/23 14:33 Pulse Rate 68 07/23/23 14:33 Respiratory Rate 20 07/23/23 14:33 Blood Pressure 133/74 07/23/23 14:33 Pulse Oximetry 97 07/23/23 14:33 Oxygen Delivery Method Room Air 07/23/23 14:33 Temperature 98.5 F 07/23/23 14:33 Pulse Rate 68 07/23/23 14:33 Respiratory Rate 20 07/23/23 14:33 Blood Pressure 133/74 07/23/23 14:33 Pulse Oximetry 97 07/23/23 14:33 Oxygen Delivery Method Room Air 07/23/23 14:33 Medical Decision Making MDM Narrative Medical decision making narrative: I spoke with the patient's machine ii coremaker over the phone, Dr. Molly Keyes through [facility] who stated that she referred the patient several days ago to come to the hospital as she is concerned that the patient still actively has temporal arteritis. Patient is agreeable to repeat labs and a dose of Solu-Medrol in the ER. Repeat labs today show significant decrease in sed rate with normal blood sugar and platelet count. Leukocytosis is improving. Patient was treated with Solu-Medrol in the ER, we will defer additional steroids and the patient is referred to local neurology as she is reluctant to go back to [facility]. Return to the ER if symptoms change or worsen. Medical Records Medical records reviewed: Yes I reviewed the patient's medical records Lab Data Lab results reviewed: Yes I reviewed the patient's lab results Labs: Lab Results 07/23/23 Range/Units 15:03 WBC 17.6 H (4.0-11.0) 10^3/uL RBC 4.67 (4.20-5.40) 10^6/uL Hgb 11.4 L (12.0-16.0) g/dL Hct 38.8 (36.0-48.0) % MCV 83.1 (81.0-99.0) fL MCH 24.4 L (26.7-34.0) pg MCHC 29.4 L (29.9-35.2) g/dL RDW 21.2 H (11.0-15.0) % Plt Count 255 (150-450) 10^3/uL MPV 10.5 (9.5-13.5) fL Seg Neuts % (Manual) 55.0 Lymphocytes % (Manual) 35.0 (20.5-60.0) % Monocytes % (Manual) 9.0 (1.7-12.0) % Eosinophils % (Manual) 1.0 (0.9-7.0) % Basophils % (Manual) 0.0 L (0.2-2.0) % Neutrophils # (Manual) 9.68 H (1.4-6.5) 10^3/uL Lymphocytes # (Manual) 6.16 H (1.20-3.80) 10^3/uL Monocytes # (Manual) 1.58 H (0.30-0.80) 10^3/uL Eosinophils # (Manual) 0.17 (0.00-0.70) 10^3/uL Basophils # (Manual) 0.00 (0.00-0.10) 10^3/uL ESR 73 H (<=30) mm/hr Sodium 140 (136-145) mmol/L Potassium 3.5 (3.5-5.1) mmol/L Chloride 107 (98-107) mmol/L Carbon Dioxide 25.2 (21.0-32.0) mmol/L Anion Gap 11.3 BUN 11.0 (7.0-18.0) mg/dL Creatinine 0.83 (0.55-1.02) mg/dL Est GFR ( Amer) >60 (>=60) Est GFR (Non-Af Amer) >60 (>=60) BUN/Creatinine Ratio 13.3 Glucose 137 H (74-106) mg/dL Calcium 9.1 (8.5-10.1) mg/dL Total Bilirubin 0.2 (0.2-1.0) mg/dL AST 18 (15-37) U/L ALT 24 (14-59) U/L Alkaline Phosphatase 129 H (46-116) U/L Total Protein 6.9 (6.4-8.2) g/dL Albumin 2.9 L (3.4-5.0) g/dL Globulin 4.0 g/dL Albumin/Globulin Ratio 0.7 Discharge Plan Discharge Chief Complaint: Eye Problems Clinical Impression: Change in vision Patient Disposition: Home, Self-Care Time of Disposition Decision: 15:45 Condition: Good Prescriptions / Home Meds: No Action albuterol sulfate 90 mcg/actuation HFA aerosol inhaler 1 puff INHALATION Q4H PRN (Reason: shortness of breath or wheezing) buspirone 30 mg tablet 30 mg PO BID fluticasone propionate 50 mcg/actuation spray,suspension 2 spray INTRANASAL Q12H PRN (Reason: allergy symptoms) lamotrigine 200 mg tablet 200 mg PO .HS levothyroxine 200 mcg tablet 200 mcg PO DAILY omeprazole 20 mg capsule,delayed release(DR/EC) 20 mg PO .HS prednisone 20 mg tablet 20 mg PO DAILY sertraline 100 mg tablet 200 mg PO DAILY trazodone 100 mg tablet 200 mg PO .hs Anoro Ellipta 62.5-25 mcg/actuation blister with device 1 inh inhalation DAILY Instructions: Blurred Vision (ED) Additional Instructions: Your platelet count is 255 today, in the normal range Stand Alone Forms: Portal Instructions Referrals: JUANITA MAHAJAN [Physician] - 1 week Yumi Rodrigues DO [Primary Care Provider] - 1 week Discharge Date/Time: 07/23/23 15:56
[2023-07-23 15:09] LABS: Hematocrit 38.8 % (36.0-48.0); Hemoglobin 11.4 g/dL (12.0-16.0); Mean Corpuscular HGB Conc 29.4 g/dL (29.9-35.2); Mean Corpuscular Hemoglobin 24.4 pg (26.7-34.0); Mean Corpuscular Volume 83.1 fL (81.0-99.0); Mean Platelet Volume 10.5 fL (9.5-13.5); Platelet Count 255 10^3/uL (150-450); Red Blood Count 4.67 10^6/uL (4.20-5.40); Red Cell Distribution Width 21.2 % (11.0-15.0); White Blood Count 17.6 10^3/uL (4.0-11.0)
[2023-07-23] MEDS: METHYLPREDNISOLONE SOD SUCC PF 125 MG/2 ML VIAL IVP (15:09)
[2023-07-23 15:15] LABS: Erythrocyte Sedimentation Rate 73 mm/hr (<=30)
[2023-07-23 15:24] LABS: Alanine Aminotransferase 24 U/L (14-59); Albumin Globulin Ratio 0.7; Albumin Level 2.9 g/dL (3.4-5.0); Alkaline Phosphatase 129 U/L (46-116); Anion Gap 11.3; Aspartate Amino Transferase 18 U/L (15-37); BUN Creatinine Ratio 13.3; Bilirubin Total 0.2 mg/dL (0.2-1.0); Calcium 9.1 mg/dL (8.5-10.1); Carbon Dioxide 25.2 mmol/L (21.0-32.0); Chloride 107 mmol/L (98-107); Estimated GFR (African America >60 (>=60); Estimated GFR (Non-African Ame >60 (>=60); Glucose 137 mg/dL (74-106); Potassium 3.5 mmol/L (3.5-5.1); Sodium 140 mmol/L (136-145); Total Protein 6.9 g/dL (6.4-8.2)
[2023-07-23 15:32] LABS: Eosinophils Absolute Manual 0.17 10^3/uL (0.00-0.70); Lymphocytes Absolute Manual 6.16 10^3/uL (1.20-3.80); Monocytes Absolute Manual 1.58 10^3/uL (0.30-0.80); Segmented Neut Absolute Manual 9.68 10^3/uL (1.4-6.5)
== END 2023-07-23 15:56 | disposition home or self-care (01) ==
PROVIDERS: Physician Assistant; Emergency Provider Emergency Medicine; Family Provider Internal Medicine Hematology & Oncology; PCP Family Medicine
DX: H53.9 Unspecified visual disturbance (principal); J44.9 Chronic obstructive pulmonary disease, unspecified; F41.9 Anxiety disorder, unspecified; E03.9 Hypothyroidism, unspecified; Z79.899 Other long term (current) drug therapy; Z79.890 Hormone replacement therapy
CPT/HCPCS: 36415; 80053; 85027; 85652; 96374; 99284; J2930